=== PATIENT | male | born 2000 | race Caucasian/White ===

== ENCOUNTER 2019-09-17 20:05 | Emergency (ER) | payer OTHER ==
[2019-09-17 20:20] VITALS: BP 168/74; PULSE 79; O2SAT 98
[2019-09-17] MEDS ORDERED: TETRACAINE 0.5% STERI-UNIT SOL OP ONE (20:48)
[2019-09-17] MEDS ORDERED: TETRACAINE 0.5% STERI-UNIT SOL OP STA (20:58)
[2019-09-17] MEDS ORDERED: Erythromycin 3.5 GM OPHTH. OP ONE (20:59)
[2019-09-17] MEDS ORDERED: Erythromycin 1 GM ONE (21:19)
--- NOTE | 2019-09-17 21:37 | ERPHSYRPT ---
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 Lt eye is tearing, clear, pt is unable to open eye for any length of time. Pt c/o burning and sharp pain to eye. Physician History: Patient is a 19-year-old male presents to our ED for evaluation of foreign body sensation in his left eye. Patient states he was at work earlier today using a grinding wheel when a sliver of metal popped off of the wheel hit him on the cheek and then on his left thigh. Throughout the course of the day patient symptoms progressed. No other trauma. Patient's left eye is tearing. No nausea or vomiting. No fever. No headache. Patient describes a sensation as a foreign body. He voices no other complaints at this time. Patient states that he was wearing protective eyewear and that the metal sliver bounced underneath the eyewear. No acute change in vision. Timing/Duration: today Location: left eye Severity: mild Associated Symptoms: redness, foreign body sensation Visual Assistive Devices: None (Patient does not wear contacts or corrective lenses.) Chemical Exposure: No Allergies/Adverse Reactions: No Known Drug Allergies Allergy (Verified 09/17/19 20:29) Hx Tetanus, Diphtheria Vaccination/Date Given: Yes Hx Influenza Vaccination/Date Given: Yes Hx Pneumococcal Vaccination/Date Given: No Immunizations Up to Date: Yes - Review of Systems Constitutional: No Fever, No Chills Eyes: No Symptoms, Eye Redness, Tearing, Foreign Body Sensation Ears, Nose, & Throat: No Symptoms Respiratory: No Symptoms, No Cough, No Dyspnea Cardiac: No Symptoms, No Chest Pain, No Edema, No Syncope Abdominal/Gastrointestinal: No Symptoms, No Abdominal Pain, No Nausea, No Vomiting, No Diarrhea Genitourinary Symptoms: No Symptoms, No Dysuria Musculoskeletal: No Symptoms, No Back Pain, No Neck Pain Skin: No Symptoms, No Rash Neurological: No Dizziness, No Focal Weakness, No Sensory Changes Psychological: No Symptoms Endocrine: No Symptoms Hematologic/Lymphatic: No Symptoms All Other Systems: Reviewed and Negative - Past Medical History Pertinent Past Medical History: Yes Neurological History: Migraines ENT History: No Pertinent History Cardiac History: No Pertinent History Respiratory History: No Pertinent History Endocrine Medical History: No Pertinent History Musculoskeletal History: No Pertinent History GI Medical History: No Pertinent History History: No Pertinent History Psycho-Social History: No Pertinent History Male Reproductive Disorders: No Pertinent History - Past Surgical History Past Surgical History: Yes Neuro Surgical History: No Pertinent History Cardiac: No Pertinent History Respiratory: No Pertinent History Gastrointestinal: No Pertinent History Genitourinary: No Pertinent History Musculoskeletal: No Pertinent History Male Surgical History: No Pertinent History Other Surgical History: tongue clipped - Social History Smoking Status: Current every day smoker How long have you smoked: 2 Exposure to second hand smoke: Yes Drug Use: none Patient Lives Alone: No - Nursing Vital Signs Nursing Vital Signs: Initial Vital Signs Temperature 97.9 F 09/17/19 20:19 Pulse Rate 79 09/17/19 20:19 Respiratory Rate 18 09/17/19 20:19 Blood Pressure 168/74 09/17/19 20:19 O2 Sat by Pulse Oximetry 98 09/17/19 20:19 Pain Scale Pain Intensity 5 - Physical Exam Vision Acuity Right Eye: 20/20 Vision Acuity Left Eye: 20/20 Eye Exam: bilateral eye: normal inspection, PERRL, EOMI, conjunctival inflammation Ears, Nose, Throat Exam: normal ENT inspection, other (No obvious corneal abrasions, no eyelid injury, no obvious foreign body lids everted, negative Alexei sign) Neck Exam: normal inspection Respiratory Exam: normal breath sounds Cardiovascular Exam: regular rate/rhythm Gastrointestinal Exam: soft Extremity Exam: normal inspection Neurologic: alert, oriented x 3, 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 OP 09/17/19 21:00 5 gm STAT ONE Administration Erythromycin Confirm 09/17/19 21:19 Erythromycin 1 Gm Administered 09/17/19 21:20 Dose 1 gm .ROUTE .STK-MED ONE Tetracaine HCl Confirm 09/17/19 20:48 Tetracaine 0.5% Steri-Unit Radha Administered 09/17/19 20:49 Dose 4 ml OP .STK-MED ONE Tetracaine HCl 4 ml 09/17/19 20:58 09/17/19 21:19 Tetracaine 0.5% Steri-Unit Radha OP 09/17/19 20:59 4 ml STAT STA Administration - Progress Progress: improved Progress Note: 09/17/19 21:49 Eye was irrigated, erythromycin ophthalmic ointment applied. Patient will contact his family's foreign correspondent in the morning for reevaluation. Counseled pt/family regarding: diagnosis, need for follow-up - Departure Departure Disposition: Home Clinical Impression: Sensation of foreign body in eye Condition: Stable Critical Care Time: No Referrals: ANA M ROY [Primary Care Provider] - Additional Instructions: Please follow-up with your foreign correspondent or at [facility] within 48 hours for reevaluation. [phone] Discharge/Care Plan RAMON HERRING was seen on 09/17/19 in the Emergency Room. The patient was counseled regarding Diagnosis,Lab results, Imaging studies, need for follow up and when to return to the Emergency Room. Prescriptions given: Discharge Note I have spoken with the patient and/or caregivers. I have explained the patient' s condition, diagnosis and treatment plan based on the information available to me at this time. I have answered the patient's and/or caregiver's questions and addressed any concerns. The patient and/or caregivers have as good understanding of the patient's diagnosis, condition and treatment plan as can be expected at this point. The vital signs have been stable. The patient's condition is stable and appropriate for discharge from the emergency department. The patient will pursue further outpatient evaluation with the primary care physician or other designated or consulting physician as outlined in the discharge instructions. The patient and/or caregivers are agreeable to this plan of care and follow-up instructions have been explained in detail. The patient and/or caregivers have received these instruction. The patient/and or caregivers are aware that any significant change in condition or worsening of symptoms should prompt an immediate return to this or the closest emergency department or call 911. Prescriptions: Erythromycin Base 3.5 gm [Erythromycin 3.5 GM OPHTH.] 3.5 gm OP QID #1 tube
== END 2019-09-17 21:48 | disposition home or self-care (01) ==
LOC: ED 20:05
DX: Z04.2 Encounter for examination and observation following work accident (principal); H57.12 Ocular pain, left eye
CPT/HCPCS: 66999; 99283; A9270-GY